=== PATIENT | male | born 1980 | race Caucasian/White ===

== ENCOUNTER → 2016-11-10 | Outpatient (CLI) | payer BC ==
--- NOTE | 2016-11-10 15:08 | DIAGNOSTIC IMAGING REPORT ---
CT OF THE RIGHT ANKLE AND FOOT WITHOUT CONTRAST CLINICAL HISTORY: Right midfoot arthritis. Evaluate for nonunion. COMPARISON STUDY: No previous studies for comparison. TECHNIQUE: Axial images of the right ankle and foot were obtained without IV contrast. Sagittal and coronal reconstructions were viewed. FINDINGS: Alignment of the tarsometatarsal joints is anatomic. There is no acute fracture within the right ankle or the right foot. Incidental note is made of a bipartite medial sesamoid of the right great toe. There are post surgical findings consistent with a calcaneocuboid fusion. The hardware is intact. There are no unexpected radiopaque foreign bodies. There is minimal bony bridging. Lucencies on either aspect of the articulation are noted with osteophyte formation. Subchondral lucencies adjacent to the tibiotalar and subtalar joints suggesting osteoarthritis, greater than expected for age. There is moderate joint space narrowing of the posterior facet of the subtalar joint. There is mild joint space narrowing of the tibiotalar articulation. Intrinsic ligaments of the right ankle and foot are suboptimally assessed by CT. IMPRESSION: 1. Status post calcaneocuboid fixation. Hardware intact. Minimal bony bridging of approximately 10%. No significant fusion at this time. 2. No acute fracture within the right ankle or right foot. 3. 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 Electronically signed by: Jose Cowan M.D. 11/10/2016 3:07 PM Dictated Date/Time: 11/10/2016 11:18 AM
== END | disposition home or self-care (01) ==
LOC: C.CTS 10:54
PROVIDERS: ATTEND Surgery Trauma Surgery
DX: M13.871 Other specified arthritis, right ankle and foot (principal)